=== PATIENT | female | born 1955 | race Caucasian/White ===

== ENCOUNTER → 2019-11-29 | Outpatient (CLI) | payer MEDICARE, OTHER ==
[~2019-11-29] MED LIST: AMITRIPTYLINE H10 M1 PO; AMITRIPTYLINE H10 M3 PO; AMITRIPTYLINE H25 M2 PO; ASPIRIN EC81 M1 PO; CELEBREX 200 M200 MG PO; CELEXA10 MG PO; CHILDREN'S ASPI81 MG PO; FIORICET 50-321 EACH PO; GABAPENTIN100 MG PO; IMITREX 50 MG T50 M1; INDERAL LA160 MG PO; LIPITOR10 MG PO; MOBIC15 MG PO; NEURONTIN300 MG PO; SIMVASTATIN40 MG PO; TOPAMAX 25 MG T25 M1 PO
== END ==
LOC: M.PC 10:15
DX: M47.812 Spondylosis without myelopathy or radiculopathy, cervical region (principal); M48.02 Spinal stenosis, cervical region

== ENCOUNTER → 2021-05-04 | Outpatient (CLI) | payer MEDICARE, OTHER | LOC: M.RAD 14:47 | PROVIDERS: ATTEND Internal Medicine | DX: M48.07 Spinal stenosis, lumbosacral region (principal); M54.12 Radiculopathy, cervical region ==